=== PATIENT | female | born 1990 | race African-American/Black ===

== ENCOUNTER 2017-05-08 11:12 | Emergency (ER) | payer BC, OTHER ==
[2017-05-08] MEDS ORDERED: MOTRIN 600 MG PO ONE (11:25)
--- NOTE | 2017-05-08 11:28 | ERPHSYRPT ---
- History of Present Illness Time Seen by Provider: 05/08/17 11:23 Source: patient Patient Subjective Stated Complaint: PT REPORTS PAIN ET SWELLING TO RIGHT HAND BEGINNING A FEW DAYS AGO-DENIE SINJURY-DENIES HITTING ANYTHING Triage Nursing Assessment: PT PINK WARM ET [id number] PULSE REGULAR-NO OBVIOUS DEFORMTY Physician History: CC: pain in right hand Hx: 26 y/o patient of Dr Nam. She has pain in right hand. It started a couple of days ago. Thought maybe she slept on it wrong. No specific injury. No N/T/W. She took ring off as the hand has some swelling. No redness or fever. States not , no chronic illnesses. Allergies/Adverse Reactions: adhesive Allergy (Mild, Verified 05/08/17 11:28) Rash latex Allergy (Mild, Verified 05/08/17 11:28) penicillin G Allergy (Mild, Verified 05/08/17 11:28) Hives Sulfa (Sulfonamide Antibiotics) Allergy (Mild, Verified 05/08/17 11:28) Hives Hx Tetanus, Diphtheria Vaccination/Date Given: Yes Hx Influenza Vaccination/Date Given: No Hx Pneumococcal Vaccination/Date Given: No Immunizations Up to Date: Yes - Review of Systems Constitutional: No Fever, No Chills Musculoskeletal: Joint Pain (right hand), No Injury Neurological: No Focal Weakness, No Parasthesia - Past Medical History Pertinent Past Medical History: No Neurological History: No Pertinent History ENT History: No Pertinent History Cardiac History: No Pertinent History Respiratory History: No Pertinent History Endocrine Medical History: No Pertinent History Musculoskeletal History: No Pertinent History GI Medical History: No Pertinent History History: No Pertinent History Psycho-Social History: Bipolar, Depression Female Reproductive Disorders: No Pertinent History - Past Surgical History Past Surgical History: Yes Neuro Surgical History: No Pertinent History Cardiac: No Pertinent History Respiratory: No Pertinent History Gastrointestinal: Hernia Repair Genitourinary: No Pertinent History Musculoskeletal: No Pertinent History Female Surgical History: Section - Social History Smoking Status: Never smoker Exposure to second hand smoke: No Drug Use: none Patient Lives Alone: No - Female History Hx Now: No (TUBAL) - Nursing Vital Signs Nursing Vital Signs: Initial Vital Signs Temperature 98.9 F 05/08/17 11:23 Pulse Rate 77 05/08/17 11:23 Respiratory Rate 18 05/08/17 11:23 Blood Pressure 129/64 05/08/17 11:23 O2 Sat by Pulse Oximetry 97 05/08/17 11:23 Pain Scale Pain Intensity 7 - Physical Exam General Appearance: alert Eyes, Ears, Nose, Throat Exam: moist mucous membranes Cardiovascular/Respiratory Exam: regular rate/rhythm Shoulder Exam: normal inspection, non-tender Elbow/Forearm Exam: normal inspection, non-tender Wrist Exam: normal inspection, non-tender Hand Exam: bone tenderness (right hand 4th MCP. Mild hand swelling. Pulses intact. ROM intact. Skin intact. No wrist tenderness. ) Neuro/Tendon Exam: normal sensation, normal motor functions Mental Status Exam: alert, oriented x 3, cooperative Skin Exam: warm, dry SpO2 Interpretation: normal SpO2: 97 Oxygen Delivery: Room Air - Course Nursing assessment & vital signs reviewed: Yes - Radiology Exams right hand X-ray Interpretation: Reviewed by me (no acute fracture. One view small density ulnar side of 4th MCP. ?avulsion.) Ordered Tests: Active Orders 24 hr Category Date Time Status Cold Application STAT Care 05/08/17 11:25 Active Splint STAT Care 05/08/17 11:51 Active HAND (MINIMUM 3 VIEWS) Stat Exams 05/08/17 11:25 Taken Medication Summary Discontinued Medications Generic Name Dose Route Start Last Admin Trade Name Freq PRN Reason Stop Dose Admin Ibuprofen 600 mg 05/08/17 11:25 05/08/17 11:33 Motrin 600 Mg PO 05/08/17 11:26 600 mg STAT ONE Administration Ibuprofen Confirm 05/08/17 11:29 Motrin 600 Mg Administered 05/08/17 11:30 Dose 600 mg .ROUTE .STK-MED ONE - Progress Progress Note: 05/08/17 11:53 Soft metacarpal wrap applied. Advised follow up with Dr Nam. Will use light duty work slip and motrin. Counseled pt/family regarding: diagnosis, need for follow-up, rad results - Departure Time of Disposition: 11:53 Departure Disposition: Home Clinical Impression: Right hand pain Condition: Stable Critical Care Time: No Referrals: SHERLY NAM [Primary Care Provider] - Instructions: Contusion Additional Instructions: Soft metacarpal wrap. Ice and rest. Rx ibuprofen. Light duty work until you see Dr Nam this week. Prescriptions: Ibuprofen 1 tab PO Q6H PRN PRN #20 tablet PRN Reason: pain
[2017-05-08] MEDS ORDERED: MOTRIN 600 MG ONE (11:29)
[2017-05-08 12:15] VITALS: BP 118/74; PULSE 76; O2SAT 98
--- NOTE | 2017-05-08 20:14 | XRAY ---
Indication: Fourth metacarpal pain. No known injury. Comparison: None 3 views of the right hand demonstrates tiny faint linear calcification adjacent to the head of the fourth metacarpal only on frontal view and is of uncertain clinical significance. No other bony, articular, or soft tissue abnormalities.
== END 2017-05-08 12:15 | disposition home or self-care (01) ==
LOC: ED 11:12
DX: M79.641 Pain in right hand (principal)
CPT/HCPCS: 73130; 99283; A9270-GY

== ENCOUNTER 2017-11-03 20:13 | Emergency (ER) | payer BC ==
[2017-11-03] MEDS ORDERED: TORAdol 30 mg Injection IV ONE (20:31)
--- NOTE | 2017-11-03 20:37 | ERPHSYRPT ---
- History of Present Illness Time Seen by Provider: 11/03/17 20:30 Historian: patient Exam Limitations: no limitations Physician History: 27 y/o female comes to the ER with complaints of RLQ abdominal pain that started today. Pt describes the pain as sharp, constant, 8/10, with radiation to back and pt has not taken any pain meds. Pt denies any fever, chills, nausea , vomiting, diarrhea, constipation, urinary symptoms and vaginal discharge. Pt denies any injury to the abdomen. Timing/Duration: today Activities at Onset: none Quality: sharpness Abdominal Pain Onset Location: RLQ Pain Radiation: flank Severity of Pain-Max: severe Severity of Pain-Current: severe Modifying Factors: Improves With: nothing Associated Symptoms: denies symptoms Previous symptoms: no prior history Allergies/Adverse Reactions: adhesive Allergy (Mild, Verified 11/03/17 20:49) Rash latex Allergy (Mild, Verified 11/03/17 20:49) penicillin G Allergy (Mild, Verified 11/03/17 20:49) Hives Sulfa (Sulfonamide Antibiotics) Allergy (Mild, Verified 11/03/17 20:49) Hives Home Medications: Buspirone HCl 15 mg PO BID 11/03/17 [History] Fluoxetine HCl 20 mg [Prozac 20 MG] 20 mg PO BID 11/03/17 [History] Hx Tetanus, Diphtheria Vaccination/Date Given: Yes Hx Influenza Vaccination/Date Given: No Hx Pneumococcal Vaccination/Date Given: No - Review of Systems Constitutional: No Fever, No Chills Eyes: No Symptoms Ears, Nose, & Throat: No Symptoms Respiratory: No Cough, No Dyspnea Cardiac: No Chest Pain, No Edema, No Syncope Abdominal/Gastrointestinal: Abdominal Pain, No Nausea, No Vomiting, No Diarrhea Genitourinary Symptoms: No Dysuria Musculoskeletal: No Back Pain, No Neck Pain Skin: No Rash Neurological: No Dizziness, No Focal Weakness, No Sensory Changes Psychological: No Symptoms Endocrine: No Symptoms All Other Systems: Reviewed and Negative - Past Medical History Pertinent Past Medical History: No Neurological History: No Pertinent History ENT History: No Pertinent History Cardiac History: No Pertinent History Respiratory History: No Pertinent History Endocrine Medical History: No Pertinent History Musculoskeletal History: No Pertinent History GI Medical History: No Pertinent History History: No Pertinent History Psycho-Social History: Bipolar, Depression Female Reproductive Disorders: No Pertinent History - Past Surgical History Past Surgical History: Yes Neuro Surgical History: No Pertinent History Cardiac: No Pertinent History Respiratory: No Pertinent History Gastrointestinal: Hernia Repair Genitourinary: No Pertinent History Musculoskeletal: No Pertinent History Female Surgical History: Section - Social History Smoking Status: Never smoker Exposure to second hand smoke: No Drug Use: none Patient Lives Alone: No - Nursing Vital Signs Nursing Vital Signs: Initial Vital Signs Temperature 97.9 F 11/03/17 20:31 Pulse Rate 80 11/03/17 20:31 Respiratory Rate 18 11/03/17 20:31 Blood Pressure 140/67 11/03/17 20:31 O2 Sat by Pulse Oximetry 98 11/03/17 20:31 Pain Scale Pain Intensity 7 - Physical Exam General Appearance: mild distress, alert Eye Exam: PERRL/EOMI, eyes nml inspection Ears, Nose, Throat Exam: normal ENT inspection, pharynx normal, moist mucous membranes Neck Exam: normal inspection, non-tender, supple, full range of motion Respiratory Exam: normal breath sounds, lungs clear, No respiratory distress Cardiovascular Exam: regular rate/rhythm, normal heart sounds Gastrointestinal/Abdomen Exam: soft, normal bowel sounds, tenderness (rlq abdominal tenderness), No mass Back Exam: normal inspection, normal range of motion, No CVA tenderness, No vertebral tenderness Extremity Exam: normal inspection, normal range of motion, pelvis stable Neurologic Exam: alert, oriented x 3, cooperative, normal mood/affect, nml cerebellar function, sensation nml, No motor deficits Skin Exam: normal color, warm, dry - Course Nursing assessment & vital signs reviewed: Yes Ordered Tests: Active Orders 24 hr Category Date Time Status IV Insertion STAT Care 11/03/17 20:31 Active NPO (ED) STAT Care 11/03/17 20:31 Active ABDOMEN AND PELVIS W CONTRAST [CT] Stat Exams 11/03/17 22:18 Taken AMYLASE Stat Lab 11/03/17 21:10 Completed CBC W DIFF Stat Lab 11/03/17 21:10 Completed CMP Stat Lab 11/03/17 21:10 Completed HCG QUALITATIVE,SERUM Stat Lab 11/03/17 21:10 Completed LIPASE Stat Lab 11/03/17 21:10 Completed Lactic Acid Stat Lab 11/03/17 20:31 Completed UA W/RFX UR CULTURE Stat Lab 11/03/17 21:30 Completed Medication Summary Discontinued Medications Generic Name Dose Route Start Last Admin Trade Name Bran PRN Reason Stop Dose Admin Ketorolac Tromethamine 30 mg 11/03/17 20:31 11/03/17 21:33 Toradol 30 Mg Injection IV 11/03/17 20:32 30 mg STAT ONE Administration Ketorolac Tromethamine Confirm 11/03/17 21:04 Toradol 30 Mg Injection Administered 11/03/17 21:05 Dose 30 mg .ROUTE .STK-MED ONE Lab/Rad Data: Laboratory Result Diagrams 11/03/17 21:10 11/03/17 21:10 Laboratory Results 11/03/17 11/03/17 11/03/17 Range/Units 21:30 21:10 21:10 WBC (4.0-10.5) K/mm3 RBC (4.1-5.4) M/mm3 Hgb (12.0-16.0) gm/dl Hct (35-47) % MCV (78-100) fl MCH (26-32) pg MCHC (32-36) g/dl RDW (11.5-14.0) % Plt Count (150-450) K/mm3 MPV (6-9.5) fl Gran % (36.0-66.0) % Eos # (Auto) (0-0.5) Absolute Lymphs (auto) (1.0-4.6) Absolute Monos (auto) (0.0-1.3) Lymphocytes % (24.0-44.0) % Monocytes % (0.0-12.0) % Eosinophils % (0.00-5.0) % Basophils % (0.0-0.4) % Absolute Granulocytes (1.4-6.9) Basophils # (0-0.4) Sodium 140 (137-145) mmol/L Potassium 3.8 (3.5-5.1) mmol/L Chloride 107 (98-107) mmol/L Carbon Dioxide 24 (22-30) mmol/L Anion Gap 13.4 (5-15) MEQ/L BUN 11 (7-17) mg/dL Creatinine 0.85 (0.52-1.04) mg/dL Estimated GFR > 60.0 ML/MIN Glucose 85 (74-106) mg/dL Lactic Acid (0.4-2.0) Calcium 9.5 (8.4-10.2) mg/dL Total Bilirubin 0.40 (0.2-1.3) mg/dL AST 23 (14-36) U/L ALT 19 (0-35) U/L Alkaline Phosphatase 80 (38-126) U/L Serum Total Protein 7.7 (6.3-8.2) g/dL Albumin 4.5 (3.5-5.0) g/dL Amylase 57 (30-110) U/L Lipase 52 (23-300) U/L Serum , Qual NEGATIVE (Negative) Ur Collection Type VOID Urine Color YELLOW (YELLOW) Urine Appearance CLEAR (CLEAR) Urine pH 5.0 (5-6) Ur Specific [place] 1.030 (1.005-1.025) Urine Protein NEGATIVE (Negative) Urine Ketones NEGATIVE (NEGATIVE) Urine Blood NEGATIVE (0-5) Blue/ul Urine Nitrite NEGATIVE (NEGATIVE) Urine Bilirubin NEGATIVE (NEGATIVE) Urine Urobilinogen NORMAL (0-1) mg/dL Ur Leukocyte Esterase NEGATIVE (NEGATIVE) Urine Culture Reflexed NO (NO) Urine Glucose NEGATIVE (NEGATIVE) mg/dL Specimen Received 11/03/17 2149 11/03/17 11/03/17 Range/Units 21:10 20:31 WBC 8.2 (4.0-10.5) K/mm3 RBC 4.26 (4.1-5.4) M/mm3 Hgb 12.1 (12.0-16.0) gm/dl Hct 37.5 (35-47) % MCV 88.0 (78-100) fl MCH 28.4 (26-32) pg MCHC 32.3 (32-36) g/dl RDW 14.4 H (11.5-14.0) % Plt Count 288 (150-450) K/mm3 MPV 11.3 H (6-9.5) fl Gran % 56.9 (36.0-66.0) % Eos # (Auto) 0.06 (0-0.5) Absolute Lymphs (auto) 2.97 (1.0-4.6) Absolute Monos (auto) 0.49 (0.0-1.3) Lymphocytes % 36.2 (24.0-44.0) % Monocytes % 6.0 (0.0-12.0) % Eosinophils % 0.7 (0.00-5.0) % Basophils % 0.2 (0.0-0.4) % Absolute Granulocytes 4.67 (1.4-6.9) Basophils # 0.02 (0-0.4) Sodium (137-145) mmol/L Potassium (3.5-5.1) mmol/L Chloride (98-107) mmol/L Carbon Dioxide (22-30) mmol/L Anion Gap (5-15) MEQ/L BUN (7-17) mg/dL Creatinine (0.52-1.04) mg/dL Estimated GFR ML/MIN Glucose (74-106) mg/dL Lactic Acid 0.7 (0.4-2.0) Calcium (8.4-10.2) mg/dL Total Bilirubin (0.2-1.3) mg/dL AST (14-36) U/L ALT (0-35) U/L Alkaline Phosphatase (38-126) U/L Serum Total Protein (6.3-8.2) g/dL Albumin (3.5-5.0) g/dL Amylase (30-110) U/L Lipase (23-300) U/L Serum , Qual (Negative) Ur Collection Type Urine Color (YELLOW) Urine Appearance (CLEAR) Urine pH (5-6) Ur Specific [place] (1.005-1.025) Urine Protein (Negative) Urine Ketones (NEGATIVE) Urine Blood (0-5) Blue/ul Urine Nitrite (NEGATIVE) Urine Bilirubin (NEGATIVE) Urine Urobilinogen (0-1) mg/dL Ur Leukocyte Esterase (NEGATIVE) Urine Culture Reflexed (NO) Urine Glucose (NEGATIVE) mg/dL Specimen Received - Progress Progress: improved Progress Note: 11/03/17 23:[address] scan shows a minimal periumbilical hernia containing fat. The labs are within normal limits. Pt will F/U with general surgery. - Departure Time of Disposition: 23:19 Departure Disposition: Home Clinical Impression: Periumbilical hernia Condition: Stable Critical Care Time: No Referrals: SHERLY WHITFIELD [Primary Care Provider] - VINICIO NAVAS MD [ASSOCIATE STAFF] - Instructions: Abdominal Hernia (DC) Additional Instructions: Follow up with Dr Navas in the next couple of days. Return to the ER if you should have any abdominal pain, nausea, vomiting, fever or chills. Prescriptions: Ketorolac Tromethamine [Toradol] 10 mg PO QID PRN #15 tablet PRN Reason: Pain
[2017-11-03 20:49] VITALS: O2SAT 98
[2017-11-03] MEDS ORDERED: TORAdol 30 mg Injection ONE (21:04)
[2017-11-03 21:15] LABS: BASOPHIL % 0.2 % (0.0-0.4); Basophil (Absolute #) 0.02 (0-0.4); Eosinophil % 0.7 % (0.00-5.0); Eosinophil (Absolute #) 0.06 (0-0.5); Granulocyte Absolute (ANC) 4.67 (1.4-6.9); Granulocytes % 56.9 % (36.0-66.0); Hematocrit 37.5 % (35-47); Hemoglobin 12.1 gm/dl (12.0-16.0); Lymphocyte (Absolute #) 2.97 (1.0-4.6); Lymphocytes % 36.2 % (24.0-44.0); Mean Corpuscular Hemoglobin 28.4 pg (26-32); Mean Corpuscular Hgb Concent. 32.3 g/dl (32-36); Mean Platelet Volume 11.3 fl (6-9.5); Monocyte (Absolute #) 0.49 (0.0-1.3); Platelet Count 288 K/mm3 (150-450); Red Blood Count 4.26 M/mm3 (4.1-5.4); Red Cell Distribution Width 14.4 % (11.5-14.0); White Blood Count 8.2 K/mm3 (4.0-10.5)
[2017-11-03 21:38] LABS: ALBUMIN 4.5 g/dL (3.5-5.0); ALKALINE PHOSPHATASE 80 U/L (38-126); AMYLASE 57 U/L (30-110); ANION GAP 13.4 MEQ/L (5-15); BLOOD UREA NITROGEN 11 mg/dL (7-17); CHLORIDE 107 mmol/L (98-107); Calcium 9.5 mg/dL (8.4-10.2); Carbon Dioxide 24 mmol/L (22-30); Creatinine 1 0.85 mg/dL (0.52-1.04); Glucose 85 mg/dL (74-106); LIPASE 52 U/L (23-300); Potassium 3.8 mmol/L (3.5-5.1); SGOT/AST 23 U/L (14-36); SGPT/ALT 19 U/L (0-35); SODIUM 140 mmol/L (137-145); Total Protein 7.7 g/dL (6.3-8.2)
[2017-11-03 21:54] LABS: Appearance CLEAR (CLEAR); Bilirubin NEGATIVE (NEGATIVE); Blood NEGATIVE Ery/ul (0-5); Glucose NEGATIVE (NEGATIVE); Ketones NEGATIVE (NEGATIVE); Leukocyte Esterase NEGATIVE (NEGATIVE); Nitrite NEGATIVE (NEGATIVE); Protein,Urine Dip NEGATIVE (Negative); Urobilinogen NORMAL mg/dL (0-1)
[2017-11-03 23:43] VITALS: BP 111/55; PULSE 76
--- NOTE | 2017-11-04 09:21 | XRAY ---
Indication: Right lower quadrant pain. Nausea. Multiple contiguous axial images obtained through the abdomen and pelvis using 80 cc Isovue 370 contrast only. Comparison: None Lung bases are clear. Heart is not enlarged. Noncontrasted stomach and bowel loops appear nonobstructed. Normal appendix. No free fluid/air. Small sigmoid diverticulum. 1.7 cm right ovary cyst. Remaining liver, gallbladder, pancreas, spleen, adrenal glands, kidneys, ureters, bladder, uterus, and aorta appear unremarkable. No pathologic retroperitoneal lymphadenopathy. Osseous structures intact. Small fatty umbilical hernia. Impression: 1. 1.7 cm dominant right ovary cyst. 2. Sigmoid diverticulum without diverticulosis. 3. Small fatty umbilical hernia. 4. Remaining CT abdomen/pelvis with contrast exam is negative. Comment: Preliminary interpretation was made by [facility]. No critical discrepancy. CT DI 23.68
== END 2017-11-03 23:42 | disposition home or self-care (01) ==
LOC: ED 20:13
DX: K42.9 Umbilical hernia without obstruction or gangrene (principal); R10.31 Right lower quadrant pain; Z79.899 Other long term (current) drug therapy
CPT/HCPCS: 36000; 36415; 74177; 80053; 81002; 82150; 83605; 83690; 84703; 85025; 96374; 99284; J1885

== ENCOUNTER 2018-12-30 23:01 | Emergency (ER) | payer OTHER ==
--- NOTE | 2018-12-31 00:38 | ERPHSYRPT ---
- History of Present Illness Time Seen by Provider: 12/31/18 00:33 Source: patient, family Exam Limitations: no limitations Patient Subjective Stated Complaint: Sore throat Triage Nursing Assessment: Patient ambulated into ED and transferred self to bed. Patient A+O X 3. Patient's skin pink, warm and dry. Patient complains of sore throat for 2 days that has gotten worse. Patient states he son was dx with strep Throat . Patient states her throat constant hurts stabbing pain 6/ 10 and body aches. Patient denies fevers. Physician History: pt son had strep recently and she has developed ST , can still swallow ; after discussion pt prefers to just go ahead with treatment rather than confirm testing and there is lost of redness and exudate consistnet with strp on exam with nodes ; swallowing OK in ER. Timing/Duration: gradual onset Severity: moderate ENT Location: throat Prearrival Treatment: over the counter meds Modifying Factors: Improves With: nothing Associated Symptoms: fever, nasal congestion/drainage, sore throat Allergies/Adverse Reactions: adhesive Allergy (Mild, Verified 12/30/18 23:24) Rash latex Allergy (Mild, Verified 12/30/18 23:24) penicillin G Allergy (Mild, Verified 12/30/18 23:24) Hives Sulfa (Sulfonamide Antibiotics) Allergy (Mild, Verified 12/30/18 23:24) Hives Home Medications: Buspirone HCl 15 mg PO TID 11/03/17 [History] Fluoxetine HCl 20 mg [Prozac 20 MG] 40 mg PO BID 11/03/17 [History] Bupropion HCl 150 mg Sr [Wellbutrin SR 150 MG] 75 mg PO BID 12/30/18 [ History] Hx Tetanus, Diphtheria Vaccination/Date Given: Yes Hx Influenza Vaccination/Date Given: Yes Hx Pneumococcal Vaccination/Date Given: No Immunizations Up to Date: Yes - Review of Systems Constitutional: Fever, No Chills Eyes: No Symptoms Ears, Nose, & Throat: Throat Pain, Painful Swallowing Respiratory: No Cough, No Dyspnea Cardiac: No Chest Pain, No Edema, No Syncope Abdominal/Gastrointestinal: No Abdominal Pain, No Nausea, No Vomiting, No Diarrhea Genitourinary Symptoms: No Dysuria Musculoskeletal: No Back Pain, No Neck Pain Skin: No Rash Neurological: No Dizziness, No Focal Weakness, No Sensory Changes Psychological: No Symptoms Endocrine: No Symptoms All Other Systems: Reviewed and Negative - Past Medical History Pertinent Past Medical History: No Neurological History: No Pertinent History ENT History: No Pertinent History Cardiac History: No Pertinent History Respiratory History: No Pertinent History Endocrine Medical History: No Pertinent History Musculoskeletal History: No Pertinent History GI Medical History: No Pertinent History History: No Pertinent History Psycho-Social History: Anxiety, Bipolar, Depression Female Reproductive Disorders: No Pertinent History - Past Surgical History Past Surgical History: Yes Neuro Surgical History: No Pertinent History Cardiac: No Pertinent History Respiratory: No Pertinent History Gastrointestinal: Hernia Repair Genitourinary: No Pertinent History Musculoskeletal: No Pertinent History Female Surgical History: Section - Social History Smoking Status: Never smoker Exposure to second hand smoke: No Drug Use: none Patient Lives Alone: No - Female History Hx Last Menstrual Period: Currently Hx Now: No - Nursing Vital Signs Nursing Vital Signs: Initial Vital Signs Temperature 97.9 F 12/30/18 23:26 Pulse Rate 78 12/30/18 23:26 Respiratory Rate 20 12/30/18 23:26 Blood Pressure 147/95 12/30/18 23:26 O2 Sat by Pulse Oximetry 98 12/30/18 23:26 Pain Scale Pain Intensity 6 - Physical Exam General Appearance: no apparent distress, alert Eye Exam: bilateral eye: normal inspection, PERRL, EOMI Ear Exam: bilateral ear: auricle normal, canal normal, TM normal Nasal Exam: normal inspection Throat Exam: moist mucus membranes, tonsillar exudate, No excessive drooling, No mandibular swelling, No maxillary swelling, No trismus Neck Exam: normal inspection, non-tender, supple, trachea midline Cardiovascular/Respiratory Exam: normal breath sounds, regular rate/rhythm Abdominal Exam: non-tender, soft Neurologic Exam: alert, oriented x 3, sensation nml, No motor deficits Skin Exam: normal color, warm, dry SpO2: 100 - Course Nursing assessment & vital signs reviewed: Yes - Progress Progress: improved, re-examined Progress Note: 12/31/18 00:38 pt declines further w/u in house and prefers to begin outpt tx and f/u PCP and has capacity to make this choice. Counseled pt/family regarding: diagnosis, need for follow-up - Departure Departure Disposition: Home Clinical Impression: Pharyngitis Condition: Good Critical Care Time: No Referrals: SHERLY WHITFIELD [Primary Care Provider] - Instructions: Strep Throat (DC), Sore Throat, Adult (DC) Additional Instructions: followup with your Dr. ; return meantime if not improving , trouble swallowing or short of breath or other concerns. Prescriptions: Erythromycin Ethylsuccinate 400 mg PO Q6H #40 tablet
[2018-12-31] MEDS ORDERED: DECADRON 10MG INJ. IM ONE (00:42)
[2018-12-31] MEDS ORDERED: Zithromax 250 MG TABLET PO ONE (00:42)
[2018-12-31] MEDS ORDERED: DECADRON 10MG INJ. ONE (00:54)
[2018-12-31] MEDS ORDERED: Zithromax 250 MG TABLET ONE (00:54)
[2018-12-31 01:01] VITALS: BP 153/82; PULSE 86; O2SAT 96
== END 2018-12-31 01:20 | disposition home or self-care (01) ==
LOC: ED 23:01
DX: J02.9 Acute pharyngitis, unspecified (principal)
CPT/HCPCS: 96372; 99283; J1100; A9270-GY

== ENCOUNTER 2021-01-13 05:40 | Day surgery (SDC) | payer OTHER ==
[2021-01-13] MEDS ORDERED: Xylocaine 2%-Epi 1:100,000 MDV IJ ONE (05:41)
[2021-01-13] MEDS ORDERED: Lactated Ringers 1,000 ML IV ONE ×2 (08:15→10:28)
[2021-01-13] MEDS ORDERED: CLINDAMYCIN-D5W 900 MG/50 ML*** 900 MG/50 ML BAG IV ONE (08:15)
[2021-01-13 08:30] LABS: Appearance SLIGHTLY CLOUDY (CLEAR); Bilirubin NEGATIVE (NEGATIVE); Blood NEGATIVE Ery/ul (0-5); Epithelial Cells RARE /HPF (FEW); Glucose NEGATIVE (NEGATIVE); Ketones NEGATIVE (NEGATIVE); Leukocyte Esterase NEGATIVE (NEGATIVE); Mucus SLIGHT /HPF (NEGATIVE); Nitrite NEGATIVE (NEGATIVE); Protein,Urine Dip NEGATIVE (Negative); Specific Gravity 1.021 (1.005-1.025); Urobilinogen 2 mg/dL (0-1); WBC 0-2 /HPF (0-5)
[2021-01-13] MEDS ORDERED: Lactated Ringers 1,000 ML IV SCH (08:30)
[2021-01-13] MEDS ORDERED: CLINDAMYCIN-D5W 900 MG/50 ML*** 900 MG/50 ML BAG IV SCH (08:30)
[2021-01-13] MEDS ORDERED: ASTRINGYN 8 GM TP ONE (08:57)
[2021-01-13] MEDS ORDERED: SUBLIMAZE 100 MCG/2 ML ONE ×2 (09:10→09:36)
[2021-01-13] MEDS ORDERED: Xylocaine-Mpf 2% 5 Ml Vial ONE (09:13)
[2021-01-13] MEDS ORDERED: Zofran 4 MG/2 ML VIAL ONE (09:24)
[2021-01-13] MEDS ORDERED: DIPRIVAN 200 MG/20 ML IV ONE ×2 (09:24→09:56)
[2021-01-13] MEDS ORDERED: Decadron 4 MG INJ ONE (09:24)
[2021-01-13] MEDS ORDERED: TORAdol 30 mg Injection ONE (09:24)
[2021-01-13] MEDS ORDERED: Xopenex 1.25 MG/0.5 ML UD NEBULE IH ONE (10:17)
[2021-01-13] MEDS ORDERED: Sodium Chloride 3 ML UD NEBULES IH ONE (10:18)
[2021-01-13] MEDS ORDERED: Hydromorphone 1 mg/ml Injection ONE (10:36)
[2021-01-13] MEDS ORDERED: Lasix 40 MG/4 ML ONE (11:45)
[2021-01-13] MEDS ORDERED: Lasix 20 MG/2 ML ONE (13:23)
[2021-01-13] MEDS ORDERED: DUONEB 0.5-3 MG/3 ml Neb IH ONE (14:50)
[2021-01-13 15:12] VITALS: BP 141/90; PULSE 112; O2SAT 96
--- NOTE | 2021-01-14 09:21 | OP ---
SURGERY DATE/TIME: 01/13/2021 0914 PREOPERATIVE DIAGNOSIS: Abnormal uterine bleeding and severe cervical dysplasia. POSTOPERATIVE DIAGNOSIS: Abnormal uterine bleeding and severe cervical dysplasia. PROCEDURE: Hysteroscopy D&C with NovaSure ablation and a loop electrosurgical excision procedure. SURGEON: Jaziel Kirby D.O. TANK CHARGER: Dominique Euceda, surgical technology instructor. ANESTHESIA: General. ESTIMATED BLOOD LOSS: Minimal. COMPLICATIONS: None. INDICATIONS: The risks, benefits, indications and alternatives of the procedure were reviewed with the patient prior to procedure. The patient understood the risk of infection, bleeding, bowel injury, bladder injury, ureteral injury, uterine perforation, pelvic infection, thromboembolic disorder associated with the surgery and desires to have this surgery as a possible means to alleviate her current medical condition. DESCRIPTION OF PROCEDURE AND FINDINGS: The patient is taken to the operating room, given general sedation, placed in dorsal lithotomy position, prepped and draped in usual sterile fashion. A weighted speculum is then placed in the patient's vagina and the anterior lip of the cervix is grasped with a single tooth tenaculum. Endocervical dilators advanced to the endocervical canal as a means to dilate the cervix and a 5 mm hysteroscope was then placed in through the endocervical region where visualization of the endometrial canal appeared to be within normal limits with no gross abnormalities. From this point a curette is then placed into the fundus of the uterus and curettage performed in all quadrants of the uterus retrieving a moderate amount of tissue. From this point hemostasis was obtained. At this point the NovaSure was then taken through the endocervical canal towards the fundal region retracted approximately 1 cm with a measurement of 6.5 cm and a width of 3.6 cm. The instrument was engaged and the machine was turned on for an ablative time of 36 seconds. At the completion of the ablation, the instrument was disengaged and removed the uterine cavity. From this point all instruments were removed from the patient's vaginal region. At this point at the completion of the ablation, a coated speculum was then placed into the patient's vaginal region and the cervix then injected circumferentially with 2% lidocaine with epinephrine and approximately 5 to 8 cc of solution was used. At this point the loop instrument was then used to excise the ecto and endocervical tissue with one take and was taken with a right to left motion and the tissue was excised without complication. The surface of the cervix was then coagulated with loop instrument ball and hemostasis was obtained. From this point Monsel solution was placed on the surface of the cervix for further hemostasis. From this time and all instruments were removed from the patient's vaginal region. The patient is then taken out of the dorsal lithotomy position, taken out of the anesthesia and was then taken to the recovery room in stable condition. All instruments and laps were accounted for x2.
[2021-01-14] MEDS ORDERED: Lasix 20 MG/2 ML IV ONE (13:20)
== END 2021-01-13 15:30 | disposition home or self-care (01) ==
LOC: SDC 05:40
PROVIDERS: ATTEND Obstetrics & Gynecology
DX: D06.9 Carcinoma in situ of cervix, unspecified (principal); N93.9 Abnormal uterine and vaginal bleeding, unspecified; Z79.899 Other long term (current) drug therapy
CPT/HCPCS: 57522; 58558; 81001; 84703; 88305; 94002; 94640; J1100; J1170; J1885; J1940; J2405; J2704; J3010; A9270-GY

== ENCOUNTER 2021-01-14 08:37 | Observation (INO) | payer OTHER ==
[2021-01-14] MEDS: Sodium Chloride 0.9% 1000 ML 1,000 ML IV SCH ×2 (09:02→19:45)
[2021-01-14 09:16] LABS: INR 0.97 (0.8-3.0); PROTIME 11.5 SECONDS (9.4-12.5)
[2021-01-14 09:18] LABS: PTT 27.5 SECONDS (25.1-36.5)
[2021-01-14 09:35] LABS: ALBUMIN 4.5 g/dL (3.5-5.0); ANION GAP 14.6 MEQ/L (5-15); BILIRUBIN,TOTAL 0.8 mg/dL (0.2-1.3); Calcium 9.6 mg/dL (8.4-10.2); Creatinine 1 1.2 mg/dL (0.52-1.04); EST GLOMERULAR FILTRATION RATE 55.7 ML/MIN; MAGNESIUM 1.9 mg/dL (1.6-2.3); Potassium 3.9 mmol/L (3.5-5.1)
[2021-01-14 09:36] LABS: Appearance CLEAR (CLEAR); Bilirubin NEGATIVE (NEGATIVE); Blood MODERATE Ery/ul (0-5); Epithelial Cells RARE /HPF (FEW); Glucose NEGATIVE (NEGATIVE); Hyaline Casts 0-2 /LPF (0-2); Ketones NEGATIVE (NEGATIVE); Leukocyte Esterase NEGATIVE (NEGATIVE); Mucus SLIGHT /HPF (NEGATIVE); Nitrite NEGATIVE (NEGATIVE); Protein,Urine Dip NEGATIVE (Negative); Specific Gravity 1.016 (1.005-1.025); Urobilinogen 2 mg/dL (0-1); WBC 0-2 /HPF (0-5)
[2021-01-14 09:38] LABS: Bacteria FEW /HPF (NEGATIVE)
[2021-01-14 10:04] LABS: Absolute Neutrophil Ct (ANC) 14.72 (1.4-6.9); BASOPHIL % 0.1 % (0.0-0.4); Basophil (Absolute #) 0.01 (0-0.4); Eosinophil (Absolute #) 0 (0-0.5); Hematocrit 38.6 % (35-47); Hemoglobin 12.3 gm/dl (12.0-16.0); Lymphocyte (Absolute #) 2.62 (1.0-4.6); Lymphocytes % 14.5 % (24.0-44.0); Mean Corpuscular Hemoglobin 28.7 pg (26-32); Mean Corpuscular Hgb Concent. 31.9 g/dl (32-36); Mean Platelet Volume 11.2 fl (7.5-11.0); Monocytes % 3.9 % (0.0-12.0); Neutrophil % 81.5 % (36.0-66.0); Platelet Count 344 K/mm3 (150-450); Red Blood Count 4.29 M/mm3 (4.1-5.4); Red Cell Distribution Width 15.4 % (11.5-14.0); White Blood Count 18.1 K/mm3 (4.0-10.5)
--- NOTE | 2021-01-14 10:38 | XRAY ---
Indication: Short of breath. Hemoptysis. Status post LEEP procedure. Multiple contiguous axial images obtained through the chest using 100 cc Isovue 370 contrast and PE protocol. Comparison: None There is suboptimal opacification of the pulmonary arteries limiting evaluation of the more distal lobar and segmental branches. No central pulmonary embolus. Heart not enlarged. Aorta is normal in course and caliber. No pathologic mediastinal/hilar lymphadenopathy. Lungs demonstrate diffuse bilateral groundglass airspace disease without consolidation/large effusion. Bony thorax intact. Limited upper abdomen demonstrates mild diffuse fatty liver. Impression: 1. Pulmonary embolus evaluation limited due to suboptimal contrast opacification. No obvious central pulmonary embolus. 2. Diffuse bilateral groundglass airspace disease. Commonly reported imaging features of Covid 19 pneumonia are present. Other processes such as influenza pneumonia and organizing pneumonia, as can be seen with drug toxicity and connective tissue disease, can cause a similar imaging pattern. 3. Fatty liver.
--- NOTE | 2021-01-14 12:57 | ERPHSYRPT ---
- History of Present Illness Time Seen by Provider: 01/14/21 08:45 Source: patient Exam Limitations: no limitations Patient Subjective Stated Complaint: SOB Triage Nursing Assessment: Patient brought back to ED via w/c and transferred self to bed. Patient A+O X3. Patient's skin pink, warm and dry. Patient complains of SOB with any kind of exertion. Patient states she had a leap procedure and ablation done per Dr. Kirby yesterday and had to be on oxygen and be given lasix in recovery due to low oxygen levels. Patient complains of pain when takinga deep breath 5/10. Lungs clear a/p yina. Physician History: Patient is a 30-year-old white female who presents with a chief complaint of shortness of breath. She reports that yesterday morning she had a LEEP procedure and an ablation by Dr. Kirby of [facility]. After surgery she was in outpatient for 10 hours waiting for her O2 saturation to get to a normal level. She was on 5 L of O2 at one time and had CPAP x2 she was also given Lasix. She was told that it was possible she had aspirated. She has had some bloody sputum from her cough. She was 92.8% on room air upon arrival with 2 L of O2 per nasal cannula she did increase to 99 to 100%. She has not tested for Covid prior to the procedure. Timing/Duration: yesterday Activities at Onset: other (Surgery and anesthesia) Severity of Dyspnea-Max: severe Severity of Dyspnea-Current: moderate Possible Cause: no prior episodes Modifying Factors: Improves With: coughing Associated Symptoms: cough, chest pain/discomfort, hemoptysis, productive cough Allergies/Adverse Reactions: adhesive Allergy (Mild, Verified 01/14/21 08:38) Rash latex Allergy (Mild, Verified 01/14/21 08:38) penicillin G Allergy (Mild, Verified 01/14/21 08:38) Hives Home Medications: Bupropion HCl 1 tab PO UD 01/06/21 [History] Buspirone HCl [Buspar] 1 tab PO TID 01/06/21 [History] Erenumab-Aooe [Aimovig Autoinjector] 140 mg SQ UD 01/06/21 [History] Fluoxetine HCl 40 mg PO BID 01/06/21 [History] OLANZapine [Zyprexa Zydis] 10 mg PO DAILY 01/06/21 [History] Rizatriptan Benzoate [Rizatriptan] 10 mg PO UD PRN 01/06/21 [History] Sulfamethoxazole/Trimethoprim [Sulfamethoxazole-Tmp Ds Tablet] 1 tab PO Q12H 01/06/21 [History] Topiramate [Trokendi Xr] 100 mg PO DAILY 01/06/21 [History] Hx Tetanus, Diphtheria Vaccination/Date Given: Yes Hx Influenza Vaccination/Date Given: Yes Hx Pneumococcal Vaccination/Date Given: No Immunizations Up to Date: Yes Travel Risk - International Travel Have you traveled outside of the country in past 3 weeks: No - Coronavirus Screening Are you exhibiting any of the following symptoms?: No Close contact with a COVID-19 positive Pt in past 14-21 Days: No - Vaccine Status Have you recieved a Covid-19 vaccination: No - Review of Systems Constitutional: No Fever, No Chills Eyes: No Symptoms Ears, Nose, & Throat: No Symptoms Respiratory: Cough, Dyspnea, Dyspnea on Exertion (LOW) Cardiac: No Chest Pain, No Edema, No Syncope Abdominal/Gastrointestinal: No Abdominal Pain, No Nausea, No Vomiting, No Diarrhea Genitourinary Symptoms: No Dysuria Musculoskeletal: No Back Pain, No Neck Pain Skin: No Rash Neurological: No Dizziness, No Focal Weakness, No Sensory Changes Psychological: No Symptoms Endocrine: No Symptoms All Other Systems: Reviewed and Negative - Past Medical History Pertinent Past Medical History: No Neurological History: Migraines ENT History: No Pertinent History Cardiac History: No Pertinent History Respiratory History: No Pertinent History Endocrine Medical History: No Pertinent History Musculoskeletal History: No Pertinent History GI Medical History: No Pertinent History History: No Pertinent History Psycho-Social History: Anxiety, Bipolar, Depression, Other Female Reproductive Disorders: No Pertinent History Other Medical History: Borderline personality disorders - Past Surgical History Past Surgical History: Yes Neuro Surgical History: No Pertinent History Cardiac: No Pertinent History Respiratory: No Pertinent History Gastrointestinal: No Pertinent History Genitourinary: No Pertinent History Musculoskeletal: No Pertinent History Female Surgical History: Tubal Ligation Other Surgical History: ablation and leap on 01/13/2021 - Social History Smoking Status: Never smoker Exposure to second hand smoke: No Drug Use: none Patient Lives Alone: No - Female History Hx Last Menstrual Period: Last tuesday Hx Now: No - Nursing Vital Signs Nursing Vital Signs: Initial Vital Signs Temperature 98.1 F 01/14/21 08:39 Pulse Rate 75 01/14/21 08:39 Respiratory Rate 25 H 01/14/21 08:39 O2 Sat by Pulse Oximetry 92 L 01/14/21 08:39 Pain Scale Pain Intensity 5 - Physical Exam General Appearance: mild distress Eye Exam: PERRL/EOMI Ears, Nose, Throat Exam: hearing grossly normal, normal ENT inspection Neck Exam: normal inspection, supple Respiratory Exam: respiratory distress (Mild), diminished breath sounds, crackles/rales Cardiovascular/Chest Exam: normal heart sounds, regular rate/rhythm Abdominal/Gastrointestinal Exam: soft, No tenderness, No distention, No mass Extremity Exam: non-tender, normal range of motion, normal inspection, no calf tenderness, no pedal edema Peripheral Pulses Exam: carotid (R): 2+, carotid (L): 2+ Neurologic Exam: alert, oriented x 3, cooperative, 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, sensation nml, No motor deficits Skin Exam: normal color, warm, No dry SpO2 Interpretation: borderline oxygenation, O2 applied SpO2: 99 O2 Delivery: Nasal Cannula - Course Nursing assessment & vital signs reviewed: Yes EKG Interpreted by Me: RATE (81), Sinus Rhythm, NORMAL AXIS, Left Bundle Branch Block, Non-specific ST Changes - CT Exams Chest CT Interpretation: Tele-radiologist Report, Other (CT report shows and pulmonary embolus evaluation somewhat limited but no obvious central pulmonary emboli bilateral diffuse groundglass airspace disease consistent with COVID-19 influenza another organizing pneumonias.) Ordered Tests: Active Orders 24 hr Category Date Time Status Elderly Caregiver STAT Care 01/14/21 08:51 Active EKG-ER Only STAT Care 01/14/21 08:50 Active IV Insertion STAT Care 01/14/21 08:50 Active Oxygen-ED Only Nasal Cannula 2 lpm Care 01/14/21 08:46 Active CHEST WITH CONTRAST [CT] Stat Exams 01/14/21 08:47 Completed CBC W DIFF Stat Lab 01/14/21 09:03 Completed CMP Stat Lab 01/14/21 09:03 Completed D-DIMER QUANTITATIVE Stat Lab 01/14/21 09:03 Completed Lactic Acid Stat Lab 01/14/21 09:03 Completed MAGNESIUM Stat Lab 01/14/21 09:03 Completed NT PRO BNP Stat Lab 01/14/21 09:03 Completed PROTIME WITH INR Stat Lab 01/14/21 09:03 Completed PTT Stat Lab 01/14/21 09:03 Completed TROPONIN Q3H Lab 01/14/21 09:03 Completed TROPONIN Q3H Lab 01/14/21 12:00 Ordered TROPONIN Q3H Lab 01/14/21 15:00 Ordered TROPONIN Q3H Lab 01/14/21 18:00 Ordered TROPONIN Q3H Lab 01/14/21 21:00 Ordered UA W/RFX UR CULTURE Stat Lab 01/14/21 09:11 Completed Medication Summary Generic Name Dose Route Start Last Admin Trade Name Bran PRN Reason Stop Dose Admin Sodium Chloride 1,000 mls @ 100 mls/hr 01/14/21 09:00 01/14/21 09:02 Sodium Chloride 0.9% 1000 Ml IV 02/13/21 08:59 100 mls/hr .Q10H ANDREA Administration Lab/Rad Data: Laboratory Result Diagrams 01/14/21 09:03 01/14/21 09:03 Laboratory Results 01/14/21 01/14/21 01/14/21 Range/Units 11:52 09:11 09:03 WBC (4.0-10.5) K/mm3 RBC (4.1-5.4) M/mm3 Hgb (12.0-16.0) gm/dl Hct (35-47) % MCV (78-100) fl MCH (26-32) pg MCHC (32-36) g/dl RDW (11.5-14.0) % Plt Count (150-450) K/mm3 MPV (7.5-11.0) fl Gran % (36.0-66.0) % Eos # (Auto) (0-0.5) Absolute Lymphs (auto) (1.0-4.6) Absolute Monos (auto) (0.0-1.3) Lymphocytes % (24.0-44.0) % Monocytes % (0.0-12.0) % Eosinophils % (0.00-5.0) % Basophils % (0.0-0.4) % Absolute Granulocytes (1.4-6.9) Basophils # (0-0.4) PT (9.4-12.5) SECONDS INR (0.8-3.0) APTT (25.1-36.5) SECONDS D-Dimer (215-500) ng/mL Sodium (137-145) mmol/L Potassium (3.5-5.1) mmol/L Chloride (98-107) mmol/L Carbon Dioxide (22-30) mmol/L Anion Gap (5-15) MEQ/L BUN (7-17) mg/dL Creatinine (0.52-1.04) mg/dL Estimated GFR ML/MIN Glucose (74-106) mg/dL Lactic Acid (0.4-2.0) Calcium (8.4-10.2) mg/dL Magnesium (1.6-2.3) mg/dL Total Bilirubin (0.2-1.3) mg/dL AST (14-36) U/L ALT (0-35) U/L Alkaline Phosphatase (38-126) U/L Troponin I < 0.012 (0.000-0.034) ng/mL NT-Pro-B Natriuret Pep (0-450) pg/mL Serum Total Protein (6.3-8.2) g/dL Albumin (3.5-5.0) g/dL Urine Color YELLOW (YELLOW) Urine Appearance CLEAR (CLEAR) Urine pH 6.0 (5-6) Ur Specific [place] 1.016 (1.005-1.025) Urine Protein NEGATIVE (Negative) Urine Ketones NEGATIVE (NEGATIVE) Urine Blood MODERATE (0-5) Blue/ul Urine Nitrite NEGATIVE (NEGATIVE) Urine Bilirubin NEGATIVE (NEGATIVE) Urine Urobilinogen 2 (0-1) mg/dL Ur Leukocyte Esterase NEGATIVE (NEGATIVE) Urine WBC (Auto) 0-2 (0-5) /HPF Urine RBC (Auto) 3-5 (0-2) /HPF U Hyaline Cast (Auto) 0-2 (0-2) /LPF U Epithel Cells (Auto) RARE (FEW) /HPF Urine Bacteria (Auto) FEW (NEGATIVE) /HPF Urine Mucus (Auto) SLIGHT (NEGATIVE) /HPF Urine Culture Reflexed NO (NO) Urine Glucose NEGATIVE (NEGATIVE) mg/dL SARS-CoV-2 (PCR) NEGATIVE (NEGATIVE) 01/14/21 01/14/21 01/14/21 Range/Units 09:03 09:03 09:03 WBC (4.0-10.5) K/mm3 RBC (4.1-5.4) M/mm3 Hgb (12.0-16.0) gm/dl Hct (35-47) % MCV (78-100) fl MCH (26-32) pg MCHC (32-36) g/dl RDW (11.5-14.0) % Plt Count (150-450) K/mm3 MPV (7.5-11.0) fl Gran % (36.0-66.0) % Eos # (Auto) (0-0.5) Absolute Lymphs (auto) (1.0-4.6) Absolute Monos (auto) (0.0-1.3) Lymphocytes % (24.0-44.0) % Monocytes % (0.0-12.0) % Eosinophils % (0.00-5.0) % Basophils % (0.0-0.4) % Absolute Granulocytes (1.4-6.9) Basophils # (0-0.4) PT 11.5 (9.4-12.5) SECONDS INR 0.97 (0.8-3.0) APTT 27.5 (25.1-36.5) SECONDS D-Dimer 932 H* (215-500) ng/mL Sodium 138 (137-145) mmol/L Potassium 3.9 (3.5-5.1) mmol/L Chloride 105 (98-107) mmol/L Carbon Dioxide 22 (22-30) mmol/L Anion Gap 14.6 (5-15) MEQ/L BUN 11 (7-17) mg/dL Creatinine 1.20 H (0.52-1.04) mg/dL Estimated GFR 55.7 ML/MIN Glucose 91 (74-106) mg/dL Lactic Acid 1.3 (0.4-2.0) Calcium 9.6 (8.4-10.2) mg/dL Magnesium 1.9 (1.6-2.3) mg/dL Total Bilirubin 0.80 (0.2-1.3) mg/dL AST 42 H (14-36) U/L ALT 34 (0-35) U/L Alkaline Phosphatase 68 (38-126) U/L Troponin I (0.000-0.034) ng/mL NT-Pro-B Natriuret Pep 121 (0-450) pg/mL Serum Total Protein 8.0 (6.3-8.2) g/dL Albumin 4.5 (3.5-5.0) g/dL Urine Color (YELLOW) Urine Appearance (CLEAR) Urine pH (5-6) Ur Specific [place] (1.005-1.025) Urine Protein (Negative) Urine Ketones (NEGATIVE) Urine Blood (0-5) Blue/ul Urine Nitrite (NEGATIVE) Urine Bilirubin (NEGATIVE) Urine Urobilinogen (0-1) mg/dL Ur Leukocyte Esterase (NEGATIVE) Urine WBC (Auto) (0-5) /HPF Urine RBC (Auto) (0-2) /HPF U Hyaline Cast (Auto) (0-2) /LPF U Epithel Cells (Auto) (FEW) /HPF Urine Bacteria (Auto) (NEGATIVE) /HPF Urine Mucus (Auto) (NEGATIVE) /HPF Urine Culture Reflexed (NO) Urine Glucose (NEGATIVE) mg/dL SARS-CoV-2 (PCR) (NEGATIVE) 01/14/21 Range/Units 09:03 WBC 18.1 H (4.0-10.5) K/mm3 RBC 4.29 (4.1-5.4) M/mm3 Hgb 12.3 (12.0-16.0) gm/dl Hct 38.6 (35-47) % MCV 90.0 (78-100) fl MCH 28.7 (26-32) pg MCHC 31.9 L (32-36) g/dl RDW 15.4 H (11.5-14.0) % Plt Count 344 (150-450) K/mm3 MPV 11.2 H (7.5-11.0) fl Gran % 81.5 H (36.0-66.0) % Eos # (Auto) 0 (0-0.5) Absolute Lymphs (auto) 2.62 (1.0-4.6) Absolute Monos (auto) 0.70 (0.0-1.3) Lymphocytes % 14.5 L (24.0-44.0) % Monocytes % 3.9 (0.0-12.0) % Eosinophils % 0.0 (0.00-5.0) % Basophils % 0.1 (0.0-0.4) % Absolute Granulocytes 14.72 H (1.4-6.9) Basophils # 0.01 (0-0.4) PT (9.4-12.5) SECONDS INR (0.8-3.0) APTT (25.1-36.5) SECONDS D-Dimer (215-500) ng/mL Sodium (137-145) mmol/L Potassium (3.5-5.1) mmol/L Chloride (98-107) mmol/L Carbon Dioxide (22-30) mmol/L Anion Gap (5-15) MEQ/L BUN (7-17) mg/dL Creatinine (0.52-1.04) mg/dL Estimated GFR ML/MIN Glucose (74-106) mg/dL Lactic Acid (0.4-2.0) Calcium (8.4-10.2) mg/dL Magnesium (1.6-2.3) mg/dL Total Bilirubin (0.2-1.3) mg/dL AST (14-36) U/L ALT (0-35) U/L Alkaline Phosphatase (38-126) U/L Troponin I (0.000-0.034) ng/mL NT-Pro-B Natriuret Pep (0-450) pg/mL Serum Total Protein (6.3-8.2) g/dL Albumin (3.5-5.0) g/dL Urine Color (YELLOW) Urine Appearance (CLEAR) Urine pH (5-6) Ur Specific [place] (1.005-1.025) Urine Protein (Negative) Urine Ketones (NEGATIVE) Urine Blood (0-5) Blue/ul Urine Nitrite (NEGATIVE) Urine Bilirubin (NEGATIVE) Urine Urobilinogen (0-1) mg/dL Ur Leukocyte Esterase (NEGATIVE) Urine WBC (Auto) (0-5) /HPF Urine RBC (Auto) (0-2) /HPF U Hyaline Cast (Auto) (0-2) /LPF U Epithel Cells (Auto) (FEW) /HPF Urine Bacteria (Auto) (NEGATIVE) /HPF Urine Mucus (Auto) (NEGATIVE) /HPF Urine Culture Reflexed (NO) Urine Glucose (NEGATIVE) mg/dL SARS-CoV-2 (PCR) (NEGATIVE) - Progress Progress: unchanged Air Movement: good Blood Culture(s) Obtained: No Antibiotics given: Yes Discussed with DrMary: Alfa Will see patient in: hospital (observation) - Departure Departure Disposition: Observation Clinical Impression: Aspiration pneumonia Condition: Fair Critical Care Time: No Referrals: SHERLY WHITFIELD [Primary Care Provider] - Instructions: Pneumonia, Adult (DC)
--- NOTE | 2021-01-14 13:49 | XRAY ---
Indication: Cough, short of breath, pneumonia. Comparison: September 28, 2014. Portable chest better inflated with new subtle bilateral patchy groundglass airspace disease without consolidation/large effusion. Heart not enlarged. Bony thorax intact.
[2021-01-14] MEDS ORDERED: ROCEPHIN 1 Gm-D5w 50 ml Bag** 1 G/50 ML IVPB IV ONE (13:56)
[2021-01-14] MEDS: LEVOFLOXACIN 750MG/150ML D5W 750 MG/150 ML BAG IV SCH (15:45)
[2021-01-14] MEDS ORDERED: BUPROPION HCL PO SCH (16:30)
[2021-01-14] MEDS: Protonix 40MG Tablet PO SCH (16:54)
[2021-01-14] MEDS: Prozac 20 MG PO SCH ×2 (16:54→21:13)
[2021-01-14] MEDS: BUSPAR 5 MG PO SCH ×2 (16:55→21:13)
[2021-01-14] MEDS: TOPIRAMATE PO SCH (16:55)
[2021-01-14] MEDS: NORCO 5/325 MG PO PRN (16:57)
[2021-01-14] MEDS: NON-FORMULARY ITEM PO SCH ×3 (16:58→21:18)
[2021-01-14] MEDS: Zyprexa Zydis 5 MG PO SCH (21:14)
[2021-01-14] MEDS ORDERED: NON-FORMULARY ITEM (Fluoxetine Hcl [Fluoxetine Hcl] 40 MG) PO SCH (22:00)
[2021-01-14] MEDS ORDERED: BUSPIRONE HCL PO SCH (22:00)
[2021-01-14] MEDS ORDERED: OLANZAPINE 10 MG PO SCH (22:00)
[2021-01-15] MEDS: NORCO 5/325 MG PO PRN ×4 (04:45→23:34)
[2021-01-15] MEDS: Sodium Chloride 0.9% 1000 ML 1,000 ML IV SCH ×2 (04:46→16:23)
[2021-01-15 06:13] LABS: Hematocrit 35.4 % (35-47); Hemoglobin 10.9 gm/dl (12.0-16.0); Mean Cell Volume 91.7 fl (78-100); Mean Corpuscular Hemoglobin 28.2 pg (26-32); Mean Corpuscular Hgb Concent. 30.8 g/dl (32-36); Mean Platelet Volume 11.1 fl (7.5-11.0); Platelet Count 290 K/mm3 (150-450); Red Blood Count 3.86 M/mm3 (4.1-5.4); Red Cell Distribution Width 15.5 % (11.5-14.0); White Blood Count 8.9 K/mm3 (4.0-10.5)
[2021-01-15 06:28] LABS: ALBUMIN 3.9 g/dL (3.5-5.0); ALKALINE PHOSPHATASE 58 U/L (38-126); ANION GAP 11.5 MEQ/L (5-15); BLOOD UREA NITROGEN 11 mg/dL (7-17); CHLORIDE 108 mmol/L (98-107); Calcium 8.8 mg/dL (8.4-10.2); Carbon Dioxide 19 mmol/L (22-30); EST GLOMERULAR FILTRATION RATE > 60.0 ML/MIN; Glucose 83 mg/dL (74-106); MAGNESIUM 1.9 mg/dL (1.6-2.3); Potassium 3.6 mmol/L (3.5-5.1); SGOT/AST 39 U/L (14-36); SGPT/ALT 31 U/L (0-35); SODIUM 136 mmol/L (137-145)
--- NOTE | 2021-01-15 08:03 | PCM.HP ---
History of Present Illness - Chief Complaint Chief Complaint: aspiration pneumonia History of Present Illness: is a 30 year old female who had a leep and endometrial ablation the day prior to arrival, she was apparently hypoxic after the procedure and spent several hours in outpatient, she returned complaining of cough with blood tinged sputum and shortness of breath with exertion. her covid test was negative, there is concern for possible aspiration apparently. she is currently not requiring oxygen but continues to have bloody sputum with her cough. - Review of Systems Constitutional: No Fever, No Chills Respiratory: Cough, Short Of Breath Cardiac: No Chest Pain Abdominal/Gastrointestinal: No Abdominal Pain, No Nausea, No Vomiting, No Diarrhea Genitourinary Symptoms: No Dysuria Skin: No Rash All Other Systems: Reviewed and Negative Medications & Allergies Home Medications: Home Medication List Bupropion HCl 1 tab PO UD 01/06/21 [History Confirmed 01/14/21] Buspirone HCl [Buspar] 1 tab PO BID 01/06/21 [History Confirmed 01/14/21] Erenumab-Aooe [Aimovig Autoinjector] 140 mg SQ UD 01/06/21 [History Confirmed 01/14/21] Fluoxetine HCl 40 mg PO BID 01/06/21 [History Confirmed 01/14/21] OLANZapine [Zyprexa Zydis] 10 mg PO QPM 01/06/21 [History Confirmed 01/14/21] Rizatriptan Benzoate [Rizatriptan] 10 mg PO UD PRN 01/06/21 [History Confirmed 01/14/21] Sulfamethoxazole/Trimethoprim [Sulfamethoxazole-Tmp Ds Tablet] 1 tab PO Q12H 0 01/06/21 [History Confirmed 01/14/21] Topiramate [Trokendi Xr] 100 mg PO QAM 01/06/21 [History Confirmed 01/14/21] Doxycycline Hyclate 100 mg [Vibramycin 100 MG] 100 mg PO BID #6 tab 01/13/21 [Rx Confirmed 01/14/21] Hydrocodone/Acetaminophen [Hydrocodone-Acetamin 5-325 mg] 1 tab PO Q6HPRN PRN #18 tablet MDD 4 01/13/21 [Rx Confirmed 01/14/21] Omeprazole 20 mg PO QAM 01/14/21 [History Confirmed 01/14/21] Allergies/Adverse Reactions: Allergies Allergy/AdvReac Type Severity Reaction Status Date / Time adhesive Allergy Mild Rash Verified 01/14/21 08:38 latex Allergy Mild Verified 01/14/21 08:38 penicillin G Allergy Mild Hives Verified 01/14/21 08:38 - Past Medical History Past Medical History: Yes Neurological History: No Pertinent History, Migraines ENT History: No Pertinent History Cardiac History: No Pertinent History Respiratory History: Pneumonia Endocrine Medical History: No Pertinent History Musculoskelatal History: No Pertinent History GI Medical History: No Pertinent History History: No Pertinent History Pyscho-Social History: Anxiety, Bipolar, Depression, Other Reproductive Disorders: Abnormal Uterine Bleeding, Menstrual Problems, Other Comment: Borderline personality disorders - Female History Hx Last Menstrual Period: Last tuesday Are you now?: No - Past Surgical History Past Surgical History: Yes Neuro Surgical History: No Pertinent History Cardiac History: No Pertinent History Respiratory Surgery: No Pertinent History GI Surgical History: Hernia Repair Genitourinary Surgical Hx: No Pertinent History Musculskeletal Surgical Hx: No Pertinent History Female Surgical History: Section Other Surgical History: ablation and leap on 01/13/2021 - Social History Smoking Status: Former smoker Exposure to second hand smoke: No Alcohol: Occasionally Drug Use: none - Physical Exam Vital Signs: Vital Signs - 24 hr Temp Pulse Resp BP Pulse Ox 01/15/21 07:36 98 01/15/21 04:00 98.6 F 84 18 119/61 98 01/14/21 23:35 98.5 F 88 20 98/50 98 01/14/21 19:12 97.2 F 86 22 95/56 95 01/14/21 18:38 95 01/14/21 14:19 98.1 F 81 32 H 119/58 97 01/14/21 13:26 84 22 100 01/14/21 13:18 98.1 F 81 32 H 119/58 97 01/14/21 13:16 99 01/14/21 12:00 78 22 128/85 99 01/14/21 11:21 73 30 H 116/80 100 01/14/21 10:30 76 18 130/70 100 01/14/21 10:28 75 29 H 130/70 100 01/14/21 08:39 98.1 F 75 25 H 92 L General Appearance: no apparent distress, obese Neurologic Exam: alert, oriented x 3 Respiratory Exam: rhonchi Cardiovascular Exam: regular rate/rhythm, normal heart sounds, normal peripheral pulses Gastrointestinal/Abdomen Exam: soft, normal bowel sounds, No tenderness, No mass Extremity Exam: normal inspection, normal range of motion, pelvis stable Skin Exam: normal color, warm, dry, No rash Results - Labs Lab/Micro Results: Lab Results-Last 24 Hours 01/14/21 01/14/21 01/14/21 Range/Units 09:03 09:03 09:03 WBC 18.1 H (4.0-10.5) K/mm3 RBC 4.29 (4.1-5.4) M/mm3 Hgb 12.3 (12.0-16.0) gm/dl Hct 38.6 (35-47) % MCV 90.0 (78-100) fl MCH 28.7 (26-32) pg MCHC 31.9 L (32-36) g/dl RDW 15.4 H (11.5-14.0) % Plt Count 344 (150-450) K/mm3 MPV 11.2 H (7.5-11.0) fl Gran % 81.5 H (36.0-66.0) % Eos # (Auto) 0 (0-0.5) Absolute Lymphs (auto) 2.62 (1.0-4.6) Absolute Monos (auto) 0.70 (0.0-1.3) Lymphocytes % 14.5 L (24.0-44.0) % Monocytes % 3.9 (0.0-12.0) % Eosinophils % 0.0 (0.00-5.0) % Basophils % 0.1 (0.0-0.4) % Absolute Granulocytes 14.72 H (1.4-6.9) Basophils # 0.01 (0-0.4) PT (9.4-12.5) SECONDS INR (0.8-3.0) APTT (25.1-36.5) SECONDS D-Dimer (215-500) ng/mL Sodium 138 (137-145) mmol/L Potassium 3.9 (3.5-5.1) mmol/L Chloride 105 (98-107) mmol/L Carbon Dioxide 22 (22-30) mmol/L Anion Gap 14.6 (5-15) MEQ/L BUN 11 (7-17) mg/dL Creatinine 1.20 H (0.52-1.04) mg/dL Estimated GFR 55.7 ML/MIN Glucose 91 (74-106) mg/dL Lactic Acid 1.3 (0.4-2.0) Calcium 9.6 (8.4-10.2) mg/dL Magnesium 1.9 (1.6-2.3) mg/dL Total Bilirubin 0.80 (0.2-1.3) mg/dL AST 42 H (14-36) U/L ALT 34 (0-35) U/L Alkaline Phosphatase 68 (38-126) U/L Troponin I (0.000-0.034) ng/mL NT-Pro-B Natriuret Pep 121 (0-450) pg/mL Serum Total Protein 8.0 (6.3-8.2) g/dL Albumin 4.5 (3.5-5.0) g/dL Urine Color (YELLOW) Urine Appearance (CLEAR) Urine pH (5-6) Ur Specific [place] (1.005-1.025) Urine Protein (Negative) Urine Ketones (NEGATIVE) Urine Blood (0-5) Blue/ul Urine Nitrite (NEGATIVE) Urine Bilirubin (NEGATIVE) Urine Urobilinogen (0-1) mg/dL Ur Leukocyte Esterase (NEGATIVE) Urine WBC (Auto) (0-5) /HPF Urine RBC (Auto) (0-2) /HPF U Hyaline Cast (Auto) (0-2) /LPF U Epithel Cells (Auto) (FEW) /HPF Urine Bacteria (Auto) (NEGATIVE) /HPF Urine Mucus (Auto) (NEGATIVE) /HPF Urine Culture Reflexed (NO) Urine Glucose (NEGATIVE) mg/dL SARS-CoV-2 (PCR) (NEGATIVE) 01/14/21 01/14/21 01/14/21 Range/Units 09:03 09:03 09:11 WBC (4.0-10.5) K/mm3 RBC (4.1-5.4) M/mm3 Hgb (12.0-16.0) gm/dl Hct (35-47) % MCV (78-100) fl MCH (26-32) pg MCHC (32-36) g/dl RDW (11.5-14.0) % Plt Count (150-450) K/mm3 MPV (7.5-11.0) fl Gran % (36.0-66.0) % Eos # (Auto) (0-0.5) Absolute Lymphs (auto) (1.0-4.6) Absolute Monos (auto) (0.0-1.3) Lymphocytes % (24.0-44.0) % Monocytes % (0.0-12.0) % Eosinophils % (0.00-5.0) % Basophils % (0.0-0.4) % Absolute Granulocytes (1.4-6.9) Basophils # (0-0.4) PT 11.5 (9.4-12.5) SECONDS INR 0.97 (0.8-3.0) APTT 27.5 (25.1-36.5) SECONDS D-Dimer 932 H* (215-500) ng/mL Sodium (137-145) mmol/L Potassium (3.5-5.1) mmol/L Chloride (98-107) mmol/L Carbon Dioxide (22-30) mmol/L Anion Gap (5-15) MEQ/L BUN (7-17) mg/dL Creatinine (0.52-1.04) mg/dL Estimated GFR ML/MIN Glucose (74-106) mg/dL Lactic Acid (0.4-2.0) Calcium (8.4-10.2) mg/dL Magnesium (1.6-2.3) mg/dL Total Bilirubin (0.2-1.3) mg/dL AST (14-36) U/L ALT (0-35) U/L Alkaline Phosphatase (38-126) U/L Troponin I < 0.012 (0.000-0.034) ng/mL NT-Pro-B Natriuret Pep (0-450) pg/mL Serum Total Protein (6.3-8.2) g/dL Albumin (3.5-5.0) g/dL Urine Color YELLOW (YELLOW) Urine Appearance CLEAR (CLEAR) Urine pH 6.0 (5-6) Ur Specific [place] 1.016 (1.005-1.025) Urine Protein NEGATIVE (Negative) Urine Ketones NEGATIVE (NEGATIVE) Urine Blood MODERATE (0-5) Blue/ul Urine Nitrite NEGATIVE (NEGATIVE) Urine Bilirubin NEGATIVE (NEGATIVE) Urine Urobilinogen 2 (0-1) mg/dL Ur Leukocyte Esterase NEGATIVE (NEGATIVE) Urine WBC (Auto) 0-2 (0-5) /HPF Urine RBC (Auto) 3-5 (0-2) /HPF U Hyaline Cast (Auto) 0-2 (0-2) /LPF U Epithel Cells (Auto) RARE (FEW) /HPF Urine Bacteria (Auto) FEW (NEGATIVE) /HPF Urine Mucus (Auto) SLIGHT (NEGATIVE) /HPF Urine Culture Reflexed NO (NO) Urine Glucose NEGATIVE (NEGATIVE) mg/dL SARS-CoV-2 (PCR) (NEGATIVE) 01/14/21 01/14/21 01/14/21 Range/Units 11:52 12:57 16:04 WBC (4.0-10.5) K/mm3 RBC (4.1-5.4) M/mm3 Hgb (12.0-16.0) gm/dl Hct (35-47) % MCV (78-100) fl MCH (26-32) pg MCHC (32-36) g/dl RDW (11.5-14.0) % Plt Count (150-450) K/mm3 MPV (7.5-11.0) fl Gran % (36.0-66.0) % Eos # (Auto) (0-0.5) Absolute Lymphs (auto) (1.0-4.6) Absolute Monos (auto) (0.0-1.3) Lymphocytes % (24.0-44.0) % Monocytes % (0.0-12.0) % Eosinophils % (0.00-5.0) % Basophils % (0.0-0.4) % Absolute Granulocytes (1.4-6.9) Basophils # (0-0.4) PT (9.4-12.5) SECONDS INR (0.8-3.0) APTT (25.1-36.5) SECONDS D-Dimer (215-500) ng/mL Sodium (137-145) mmol/L Potassium (3.5-5.1) mmol/L Chloride (98-107) mmol/L Carbon Dioxide (22-30) mmol/L Anion Gap (5-15) MEQ/L BUN (7-17) mg/dL Creatinine (0.52-1.04) mg/dL Estimated GFR ML/MIN Glucose (74-106) mg/dL Lactic Acid (0.4-2.0) Calcium (8.4-10.2) mg/dL Magnesium (1.6-2.3) mg/dL Total Bilirubin (0.2-1.3) mg/dL AST (14-36) U/L ALT (0-35) U/L Alkaline Phosphatase (38-126) U/L Troponin I < 0.012 < 0.012 (0.000-0.034) ng/mL NT-Pro-B Natriuret Pep (0-450) pg/mL Serum Total Protein (6.3-8.2) g/dL Albumin (3.5-5.0) g/dL Urine Color (YELLOW) Urine Appearance (CLEAR) Urine pH (5-6) Ur Specific [place] (1.005-1.025) Urine Protein (Negative) Urine Ketones (NEGATIVE) Urine Blood (0-5) Blue/ul Urine Nitrite (NEGATIVE) Urine Bilirubin (NEGATIVE) Urine Urobilinogen (0-1) mg/dL Ur Leukocyte Esterase (NEGATIVE) Urine WBC (Auto) (0-5) /HPF Urine RBC (Auto) (0-2) /HPF U Hyaline Cast (Auto) (0-2) /LPF U Epithel Cells (Auto) (FEW) /HPF Urine Bacteria (Auto) (NEGATIVE) /HPF Urine Mucus (Auto) (NEGATIVE) /HPF Urine Culture Reflexed (NO) Urine Glucose (NEGATIVE) mg/dL SARS-CoV-2 (PCR) NEGATIVE (NEGATIVE) 01/14/21 01/14/21 01/15/21 Range/Units 18:15 21:34 05:45 WBC 8.9 (4.0-10.5) K/mm3 RBC 3.86 L (4.1-5.4) M/mm3 Hgb 10.9 L (12.0-16.0) gm/dl Hct 35.4 (35-47) % MCV 91.7 (78-100) fl MCH 28.2 (26-32) pg MCHC 30.8 L (32-36) g/dl RDW 15.5 H (11.5-14.0) % Plt Count 290 (150-450) K/mm3 MPV 11.1 H (7.5-11.0) fl Gran % (36.0-66.0) % Eos # (Auto) (0-0.5) Absolute Lymphs (auto) (1.0-4.6) Absolute Monos (auto) (0.0-1.3) Lymphocytes % (24.0-44.0) % Monocytes % (0.0-12.0) % Eosinophils % (0.00-5.0) % Basophils % (0.0-0.4) % Absolute Granulocytes (1.4-6.9) Basophils # (0-0.4) PT (9.4-12.5) SECONDS INR (0.8-3.0) APTT (25.1-36.5) SECONDS D-Dimer (215-500) ng/mL Sodium (137-145) mmol/L Potassium (3.5-5.1) mmol/L Chloride (98-107) mmol/L Carbon Dioxide (22-30) mmol/L Anion Gap (5-15) MEQ/L BUN (7-17) mg/dL Creatinine (0.52-1.04) mg/dL Estimated GFR ML/MIN Glucose (74-106) mg/dL Lactic Acid (0.4-2.0) Calcium (8.4-10.2) mg/dL Magnesium (1.6-2.3) mg/dL Total Bilirubin (0.2-1.3) mg/dL AST (14-36) U/L ALT (0-35) U/L Alkaline Phosphatase (38-126) U/L Troponin I < 0.012 < 0.012 (0.000-0.034) ng/mL NT-Pro-B Natriuret Pep (0-450) pg/mL Serum Total Protein (6.3-8.2) g/dL Albumin (3.5-5.0) g/dL Urine Color (YELLOW) Urine Appearance (CLEAR) Urine pH (5-6) Ur Specific [place] (1.005-1.025) Urine Protein (Negative) Urine Ketones (NEGATIVE) Urine Blood (0-5) Blue/ul Urine Nitrite (NEGATIVE) Urine Bilirubin (NEGATIVE) Urine Urobilinogen (0-1) mg/dL Ur Leukocyte Esterase (NEGATIVE) Urine WBC (Auto) (0-5) /HPF Urine RBC (Auto) (0-2) /HPF U Hyaline Cast (Auto) (0-2) /LPF U Epithel Cells (Auto) (FEW) /HPF Urine Bacteria (Auto) (NEGATIVE) /HPF Urine Mucus (Auto) (NEGATIVE) /HPF Urine Culture Reflexed (NO) Urine Glucose (NEGATIVE) mg/dL SARS-CoV-2 (PCR) (NEGATIVE) 01/15/21 Range/Units 05:45 WBC (4.0-10.5) K/mm3 RBC (4.1-5.4) M/mm3 Hgb (12.0-16.0) gm/dl Hct (35-47) % MCV (78-100) fl MCH (26-32) pg MCHC (32-36) g/dl RDW (11.5-14.0) % Plt Count (150-450) K/mm3 MPV (7.5-11.0) fl Gran % (36.0-66.0) % Eos # (Auto) (0-0.5) Absolute Lymphs (auto) (1.0-4.6) Absolute Monos (auto) (0.0-1.3) Lymphocytes % (24.0-44.0) % Monocytes % (0.0-12.0) % Eosinophils % (0.00-5.0) % Basophils % (0.0-0.4) % Absolute Granulocytes (1.4-6.9) Basophils # (0-0.4) PT (9.4-12.5) SECONDS INR (0.8-3.0) APTT (25.1-36.5) SECONDS D-Dimer (215-500) ng/mL Sodium 136 L (137-145) mmol/L Potassium 3.6 (3.5-5.1) mmol/L Chloride 108 H (98-107) mmol/L Carbon Dioxide 19 L (22-30) mmol/L Anion Gap 11.5 (5-15) MEQ/L BUN 11 (7-17) mg/dL Creatinine 1.10 H (0.52-1.04) mg/dL Estimated GFR > 60.0 ML/MIN Glucose 83 (74-106) mg/dL Lactic Acid (0.4-2.0) Calcium 8.8 (8.4-10.2) mg/dL Magnesium 1.9 (1.6-2.3) mg/dL Total Bilirubin 0.50 (0.2-1.3) mg/dL AST 39 H (14-36) U/L ALT 31 (0-35) U/L Alkaline Phosphatase 58 (38-126) U/L Troponin I (0.000-0.034) ng/mL NT-Pro-B Natriuret Pep (0-450) pg/mL Serum Total Protein 7.0 (6.3-8.2) g/dL Albumin 3.9 (3.5-5.0) g/dL Urine Color (YELLOW) Urine Appearance (CLEAR) Urine pH (5-6) Ur Specific [place] (1.005-1.025) Urine Protein (Negative) Urine Ketones (NEGATIVE) Urine Blood (0-5) Blue/ul Urine Nitrite (NEGATIVE) Urine Bilirubin (NEGATIVE) Urine Urobilinogen (0-1) mg/dL Ur Leukocyte Esterase (NEGATIVE) Urine WBC (Auto) (0-5) /HPF Urine RBC (Auto) (0-2) /HPF U Hyaline Cast (Auto) (0-2) /LPF U Epithel Cells (Auto) (FEW) /HPF Urine Bacteria (Auto) (NEGATIVE) /HPF Urine Mucus (Auto) (NEGATIVE) /HPF Urine Culture Reflexed (NO) Urine Glucose (NEGATIVE) mg/dL SARS-CoV-2 (PCR) (NEGATIVE) - Radiology Impressions Radiology Exams & Impressions: Radiology Procedures Category Date Time Status CHEST 1 VIEW (PORTABLE) DAILY Exams 01/14/21 13:30 Completed CHEST WITH CONTRAST [CT] Stat Exams 01/14/21 08:47 Completed - Other Procedures and Tests Respiratory Therapy 01/14/21 13:18 Oxygen Nasal Cannula 2 lpm Assessment/Plan (1) Aspiration pneumonia Current Visit: Yes Status: Acute Assessment & Plan: on rocephin and levaquin, wbc normalized but patient still with poor tolerance of activity and bloody sputum. will continue current therapy and observe. Code(s): J69.0 - PNEUMONITIS DUE TO INHALATION OF FOOD AND VOMIT
[2021-01-15] MEDS ORDERED: TOPIRAMATE 100 MG PO SCH (10:00)
[2021-01-15] MEDS ORDERED: ROCEPHIN 1 Gm-D5w 50 ml Bag** 1 G/50 ML IVPB IV SCH ×2 (10:00)
[2021-01-15] MEDS ORDERED: NON-FORMULARY ITEM (Omeprazole [Omeprazole] 20 MG) PO SCH (10:00)
[2021-01-15] MEDS: Protonix 40MG Tablet PO SCH (10:29)
[2021-01-15] MEDS: TOPIRAMATE PO SCH (10:29)
[2021-01-15] MEDS: Prozac 20 MG PO SCH ×2 (10:29→21:44)
[2021-01-15] MEDS: BUSPAR 5 MG PO SCH ×2 (10:30→21:43)
[2021-01-15] MEDS: LEVOFLOXACIN 750MG/150ML D5W 750 MG/150 ML BAG IV SCH (10:42)
[2021-01-15] MEDS: NON-FORMULARY ITEM PO SCH ×2 (21:42→21:45)
[2021-01-15] MEDS: Zyprexa Zydis 5 MG PO SCH (21:44)
[2021-01-16] MEDS: Sodium Chloride 0.9% 1000 ML 1,000 ML IV SCH (02:31)
[2021-01-16 05:32] LABS: Absolute Neutrophil Ct (ANC) 3.54 (1.4-6.9); BASOPHIL % 0.4 % (0.0-0.4); Basophil (Absolute #) 0.03 (0-0.4); Eosinophil % 1.3 % (0.00-5.0); Eosinophil (Absolute #) 0.09 (0-0.5); Hemoglobin 11.1 gm/dl (12.0-16.0); Lymphocyte (Absolute #) 2.58 (1.0-4.6); Mean Cell Volume 92.5 fl (78-100); Mean Corpuscular Hemoglobin 28.5 pg (26-32); Mean Corpuscular Hgb Concent. 30.8 g/dl (32-36); Mean Platelet Volume 10.8 fl (7.5-11.0); Monocyte (Absolute #) 0.55 (0.0-1.3); Monocytes % 8.1 % (0.0-12.0); Neutrophil % 52.2 % (36.0-66.0); Platelet Count 292 K/mm3 (150-450); Red Blood Count 3.89 M/mm3 (4.1-5.4); Red Cell Distribution Width 15.3 % (11.5-14.0); White Blood Count 6.8 K/mm3 (4.0-10.5)
[2021-01-16 05:57] LABS: ANION GAP 12.7 MEQ/L (5-15); BLOOD UREA NITROGEN 8 mg/dL (7-17); CHLORIDE 108 mmol/L (98-107); Calcium 8.8 mg/dL (8.4-10.2); Carbon Dioxide 19 mmol/L (22-30); EST GLOMERULAR FILTRATION RATE > 60.0 ML/MIN; Glucose 91 mg/dL (74-106); Potassium 3.7 mmol/L (3.5-5.1); SODIUM 136 mmol/L (137-145)
[2021-01-16] MEDS: NORCO 5/325 MG PO PRN (07:25)
--- NOTE | 2021-01-16 07:56 | PCM.DS ---
Discharge Summary Date of Admission: 01/14/21 14:06 Admitting Physician: DIRK TILLEY Primary Care Provider: SHERLY WHITFIELD Allergies Allergies adhesive Allergy (Mild, Verified 01/14/21 08:38) Rash latex Allergy (Mild, Verified 01/14/21 08:38) penicillin G Allergy (Mild, Verified 01/14/21 08:38) [facility] Summary - Hospital Course Hospital Course: patient was admitted with cough, hemoptysis and shortness of breath, presumed aspiration pneumonia after a leep/ablation procedure the day prior to arrival. her cough is resolved, oxygenation normal on room air and has no dyspnea with exertion on discharge today, she feels completely back to normal. - Vitals & Intake/Output Vital Signs: Vital Signs Temperature 97.9 F 01/16/21 04:00 Pulse Rate 72 01/16/21 04:00 Respiratory Rate 18 01/16/21 04:00 Blood Pressure 117/70 01/16/21 04:00 O2 Sat by Pulse Oximetry 98 01/16/21 04:00 Intake & Output: Intake & Output 01/13/21 01/14/21 01/15/21 01/16/21 11:59 11:59 11:59 11:59 Intake Total 2782 4022 Balance 2782 4022 Weight 145.15 kg 153.4 kg 154.1 kg - Lab Result Diagrams: 01/16/21 04:00 01/16/21 04:00 Lab Results-Last 24 Hrs: Lab Results-Last 24 Hours 01/16/21 01/16/21 Range/Units 04:00 04:00 WBC 6.8 (4.0-10.5) K/mm3 RBC 3.89 L (4.1-5.4) M/mm3 Hgb 11.1 L (12.0-16.0) gm/dl Hct 36.0 (35-47) % MCV 92.5 (78-100) fl MCH 28.5 (26-32) pg MCHC 30.8 L (32-36) g/dl RDW 15.3 H (11.5-14.0) % Plt Count 292 (150-450) K/mm3 MPV 10.8 (7.5-11.0) fl Gran % 52.2 (36.0-66.0) % Eos # (Auto) 0.09 (0-0.5) Absolute Lymphs (auto) 2.58 (1.0-4.6) Absolute Monos (auto) 0.55 (0.0-1.3) Lymphocytes % 38.0 (24.0-44.0) % Monocytes % 8.1 (0.0-12.0) % Eosinophils % 1.3 (0.00-5.0) % Basophils % 0.4 (0.0-0.4) % Absolute Granulocytes 3.54 (1.4-6.9) Basophils # 0.03 (0-0.4) Sodium 136 L (137-145) mmol/L Potassium 3.7 (3.5-5.1) mmol/L Chloride 108 H (98-107) mmol/L Carbon Dioxide 19 L (22-30) mmol/L Anion Gap 12.7 (5-15) MEQ/L BUN 8 (7-17) mg/dL Creatinine 1.00 (0.52-1.04) mg/dL Estimated GFR > 60.0 ML/MIN Glucose 91 (74-106) mg/dL Calcium 8.8 (8.4-10.2) mg/dL - Radiology Exams Ordered Rad Exams-Entire Visit: Radiology Procedures Category Date Time Status CHEST 1 VIEW (PORTABLE) DAILY Exams 01/14/21 13:30 Completed CHEST WITH CONTRAST [CT] Stat Exams 01/14/21 08:47 Completed - Procedures and Test Procedures and Tests throughout Hospitalization: Therapy Orders & Screens 01/14/21 13:18 Oxygen Nasal Cannula 2 lpm Comment: 01/14/21 17:07 Incentive Spirometry UD Comment: 10x hourly Diagnosis: aspiration pneumonia Discharge Exam General Appearance: no apparent distress, obese Neurologic Exam: alert, oriented x 3 Respiratory Exam: normal breath sounds, lungs clear, No respiratory distress Cardiovascular Exam: regular rate/rhythm, normal heart sounds Gastrointestinal/Abdomen Exam: soft, No tenderness, No mass Extremity Exam: normal inspection, normal range of motion Skin Exam: normal color, warm, dry Final Diagnosis/Problem List - Final Discharge Diagnosis/Problem (1) Aspiration pneumonia Current Visit: Yes Status: Acute Assessment & Plan: home on levaquin, resolved symptoms Code(s): J69.0 - PNEUMONITIS DUE TO INHALATION OF FOOD AND VOMIT - Discharge Disposition: Home, Self-Care Condition: Good Prescriptions: New levoFLOXacin [Levofloxacin] 750 mg PO DAILY #3 tablet Continue Topiramate [Trokendi Xr] 100 mg PO QAM Rizatriptan Benzoate [Rizatriptan] 10 mg PO UD PRN PRN Reason: Headache OLANZapine [Zyprexa Zydis] 10 mg PO QPM Fluoxetine HCl 40 mg PO BID Erenumab-Aooe [Aimovig Autoinjector] 140 mg SQ UD Buspirone HCl [Buspar] 1 tab PO BID Bupropion HCl 1 tab PO UD Hydrocodone/Acetaminophen [Hydrocodone-Acetamin 5-325 mg] 1 tab PO Q6HPRN PRN #18 tablet MDD 4 PRN Reason: Pain Omeprazole 20 mg PO QAM Discontinued Sulfamethoxazole/Trimethoprim [Sulfamethoxazole-Tmp Ds Tablet] 1 tab PO Q12H Doxycycline Hyclate 100 mg [Vibramycin 100 MG] 100 mg PO BID #6 tab Follow up with: SHERLY WHITFIELD [Primary Care Provider] - 1 Week
[2021-01-16 08:12] VITALS: BP 118/63; PULSE 79; O2SAT 97
== END 2021-01-16 08:22 | disposition home or self-care (01) ==
LOC: ED 08:37 → MED SURG 14:06
PROVIDERS: ADMIT Family Medicine; ATTEND Family Medicine
DX: J95.4 Chemical pneumonitis due to anesthesia (principal); R07.9 Chest pain, unspecified; Z98.890 Other specified postprocedural states; Z79.899 Other long term (current) drug therapy; Z20.822 Contact with and (suspected) exposure to COVID-19
CPT/HCPCS: 36000; 36415; 71045; 71260; 80048; 80053; 81001; 83605; 83735; 83880; 84484; 85025; 85027; 85379; 85610; 85730; 93005; 93041; 94760; 96374; 99285; G0378; U0003; J0696; J1956; A9270-GY

== ENCOUNTER 2022-07-13 06:44 | Day surgery (SDC) | payer OTHER ==
[~2022-07-13 06:44] MED LIST: ASTRINGYN 8 GM TP ONE; XYLOCAINE 1%/Epi 1:100000 MDV 20 ML ONE
[2022-07-13] MEDS ORDERED: Lactated Ringers 1,000 ML IV ONE (07:22)
[2022-07-13] MEDS ORDERED: CLINDAMYCIN-D5W 900 MG/50 ML*** 900 MG/50 ML BAG IV SCH (07:30)
[2022-07-13] MEDS ORDERED: Lactated Ringers 1,000 ML IV SCH (07:30)
[2022-07-13] MEDS ORDERED: CLINDAMYCIN-D5W 900 MG/50 ML*** 900 MG/50 ML BAG IV ONE (08:21)
[2022-07-13] MEDS ORDERED: Versed 2 MG/2 ML Injection ONE (08:51)
[2022-07-13] MEDS ORDERED: SUBLIMAZE 100 MCG/2 ML ONE (08:51)
[2022-07-13] MEDS ORDERED: Quelicin Fliptop 200 MG/10 ML ONE (08:52)
[2022-07-13] MEDS ORDERED: DIPRIVAN 200 MG/20 ML IV ONE (08:52)
[2022-07-13] MEDS ORDERED: Zofran 4 MG/2 ML VIAL ONE (09:00)
[2022-07-13] MEDS ORDERED: TORAdol 30 mg Injection ONE (09:00)
[2022-07-13] MEDS ORDERED: Decadron 4 MG INJ ONE (09:00)
[2022-07-13 10:34] VITALS: BP 129/77; PULSE 77; O2SAT 96
--- NOTE | 2022-07-14 07:51 | OP ---
SURGERY DATE/TIME: 07/13/2022 0850 PREOPERATIVE DIAGNOSIS: Recurrent severe cervical dysplasia. POSTOPERATIVE DIAGNOSIS: Recurrent severe cervical dysplasia. PROCEDURE: Loop electrosurgical excision procedure (LEEP). SURGEON: Jaziel Kirby D.O. [employer] POLISHER: Josefina Ford, surgical territory manager. ANESTHESIA: General. ESTIMATED BLOOD LOSS: Minimal. COMPLICATIONS: None. INDICATIONS: The risks, benefits, indications and alternatives of the procedure were reviewed with the patient prior to procedure. The patient understood the risk of infection, bleeding, bowel injury, bladder injury, pelvic infection and thromboembolic disorder associated with this procedure and desires to have this procedure as a possible means to alleviate her current medical condition. DESCRIPTION OF PROCEDURE AND FINDINGS: At this point the patient is taken to the operating room, given general sedation, placed in the dorsal lithotomy position, prepped and draped in the usual sterile fashion. A coated speculum is then placed into the patient's vagina and the cervix was then injected circumferentially with 1% lidocaine with epinephrine and approximately 0.4 cc was used. At this point the loop instrument was then used to excise the ectocervical portion where an in depth of 7 to 8 mm of ectocervical tissue was excised in a right to left motion followed by 2 to 3 mm endocervical excision done so in a similar fashion. After complete excision of ectocervical and endocervical tissue, the remaining cervical tissue was coagulated with loop sub master ball and hemostasis obtained. From this point all instruments were removed from the patient's vaginal region. The patient was then taken out of the dorsal lithotomy position, was taken out of anesthesia and was then taken to the recovery room in stable condition. All instruments and laps were accounted for x2.
== END 2022-07-13 10:35 | disposition home or self-care (01) ==
LOC: SDC 06:44
PROVIDERS: ATTEND Obstetrics & Gynecology
DX: D06.9 Carcinoma in situ of cervix, unspecified (principal)
CPT/HCPCS: 81025; J0330; J1100; J1885; J2250; J2405; J2704; J3010; A9270-GY